=== PATIENT | female | born 1965 | race Caucasian/White ===

== ENCOUNTER → 2024-08-21 15:51 | Outpatient (REF) | payer BC, SELFPAY | LOC: WDC 15:51 | PROVIDERS: ATTENDING PHYSICIAN Nurse Practitioner Adult Health; FAMILY PHYSICIAN Family Medicine | DX: Z12.31 Encounter for screening mammogram for malignant neoplasm of breast (principal) | CPT/HCPCS: 77063; 77067 ==

== ENCOUNTER → 2024-10-29 14:54 | Outpatient (REF) | payer BC, SELFPAY | LOC: HWRAD 14:54 | PROVIDERS: ATTENDING PHYSICIAN Physician Assistant Medical | DX: Z87.891 Personal history of nicotine dependence (principal) | CPT/HCPCS: 71271 ==

== ENCOUNTER → 2024-12-06 15:09 | Outpatient (REF) | payer BC, SELFPAY | LOC: MRI 3T 15:09 | PROVIDERS: ATTENDING PHYSICIAN Physician Assistant Medical; REFERRING PHYSICIAN Family Medicine | DX: M89.9 Disorder of bone, unspecified (principal) | CPT/HCPCS: 72157; A9575 ==

== ENCOUNTER → 2024-12-17 09:14 | Outpatient (REF) | payer BC, SELFPAY | LOC: RAD 09:14 | PROVIDERS: ATTENDING PHYSICIAN Physician Assistant Medical | DX: D18.09 Hemangioma of other sites (principal) | CPT/HCPCS: 78803; A9503 ==

== ENCOUNTER → 2025-01-21 09:15 | Outpatient (REF) | payer BC, SELFPAY | LOC: RAD 09:15 | PROVIDERS: ATTENDING PHYSICIAN Nurse Practitioner Adult Health; FAMILY PHYSICIAN Family Medicine | DX: Z78.0 Asymptomatic menopausal state (principal) | CPT/HCPCS: 77080 ==

== ENCOUNTER → 2025-07-27 11:23 | Outpatient (REF) | payer BC, SELFPAY | LOC: RAD 11:23 | PROVIDERS: ATTENDING PHYSICIAN Physician Assistant Medical | DX: M54.9 Dorsalgia, unspecified (principal) | CPT/HCPCS: 72072 ==

== ENCOUNTER → 2025-08-26 14:37 | Outpatient (REF) | payer BC, SELFPAY | LOC: WDC 14:37 | PROVIDERS: ATTENDING PHYSICIAN Nurse Practitioner Adult Health; FAMILY PHYSICIAN Physician Assistant Medical | DX: Z12.31 Encounter for screening mammogram for malignant neoplasm of breast (principal) | CPT/HCPCS: 77063; 77067 ==